=== PATIENT | female | born 1990 | race Two or more races ===

== ENCOUNTER 2025-04-02 12:06 | Outpatient (CLI) | payer OTHER, SELFPAY ==
[2025-04-04 02:05] LABS: HPV Source Cervix
[2025-04-07 16:33] LABS: Pap Test Digital Imaging Done
== END 2025-04-02 12:07 | disposition home or self-care (01) ==
PROVIDERS: Visit Provider Physician Assistant
DX: Z12.4 Encounter for screening for malignant neoplasm of cervix (principal)
CPT/HCPCS: 87624; 87625; 88141; 88142; 88175

== ENCOUNTER 2025-07-10 09:02 | Outpatient (CLI) | payer MEDICAID, SELFPAY ==
--- NOTE | 2025-07-10 09:15 | CRLHL7_ITS ---
For Patients: As a result of the Cures Act, medical imaging exams and procedure reports are released immediately into your electronic medical record. You may view this report before your referring provider. If you have questions, please contact your health care provider. OB ULTRASOUND 07/10/2025 INDICATION: Dating and viability. TECHNIQUE: Real time holm scale imaging of the fetus was performed. Transvaginal imaging performed. LMP: 05/03/2025. LAURO by LMP: 02/07/2026. GA: 9 w, 5 d. Previous US: No. CRL: 5.6 cm. 12 w 1 d. LAURO: 01/21/2026. FHR: 159 BPM. Gestational sac: 5.1 cm. Appears within normal limits. Yolk sac: Placenta Formed. Right ovary: Within normal limits. 2.8 x 1.4 x 2.7 cm. Left ovary: Within normal limits. 6.8 x 2.9 x 4.5 cm. CL. IMPRESSION: 1) Single living intrauterine measures 12 weeks 1 day. 2) Sonographic due date 01/21/2026. 3) Simple cyst left ovary measures 2.8 x 2.5 x 3.4 cm. BRADFORD MACHUCA M.D. Diagnostic Radiologist [email or web address] DW/Dictated by: Bradford Machuca MD @ 07/12/2025 1:17:00 PM (Electronically Signed)
== END 2025-07-10 09:03 | disposition home or self-care (01) ==
LOC: US 09:04
PROVIDERS: Visit Provider Advanced Practice Midwife
DX: O26.891 Other specified pregnancy related conditions, first trimester (principal); O34.81 Maternal care for other abnormalities of pelvic organs, first trimester; N83.292 Other ovarian cyst, left side; Z3A.12 12 weeks gestation of pregnancy
CPT/HCPCS: 76817; T1013

== ENCOUNTER 2025-07-10 10:01 | Outpatient (CLI) | payer MEDICAID, SELFPAY | END 2025-07-10 10:02 | disposition home or self-care (01) | PROVIDERS: Visit Provider Advanced Practice Midwife | DX: Z34.91 Encounter for supervision of normal pregnancy, unspecified, first trimester (principal) | CPT/HCPCS: 83020; 83021; 84443; 85660; 86592; 86703; 86704; 86706; 86762; 86780; 86787; 86803; 86850; 86900; 86901; 87086; 87340; 87491; 87591 ==